=== PATIENT | male | born 1950 | race Caucasian/White ===

== ENCOUNTER 2023-09-18 12:44 | Emergency (ER) | payer BC, MEDICAID ==
[~2023-09-18] VITALS: Ht 177.8 cm; Wt 91.0 kg
[~2023-09-18 12:44] MED LIST: ASMANEX TWISTHALER IH; ASPIRIN PO; CALCITROL PO; CRESTOR PO; GABAPENTIN PO; HECORIA PO; METOPROLOL TARTRATE PO; MILK THISTLE PO; MORPHINE SULFATE PO; MYCOPHENOLATE PO; NEXIUM PO; OMEPRAZOLE PO; PREDISONE PO; SEREVENT DISKUS IH; SERTRALINE PO; TAMSULOSIN PO; TIZANIDINE PO; TRAZODONE PO; [UNRECOGNIZED DRUG - OTHER] PO; [UNRECOGNIZED DRUG - OTHER] PO
[2023-09-18 13:08] VITALS: TEMP 98.6
[2023-09-18 13:51] LABS: BASOPHILS % (AUTO) 0.5 % (0-1); EOSINOPHILS % (AUTO) 0.7 % (0-6); HEMATOCRIT 40.8 % (42.0-52.0); LYMPHOCYTES # (AUTO) 0.9 X10'3 (1.1-4.8); LYMPHOCYTES % (AUTO) 15.3 % (21-51); MEAN CORPUSCULAR HEMOGLOBIN 26.6 PG (27.0-31.0); MEAN CORPUSCULAR HGB CONC 31.8 g/dL (33.0-36.5); MEAN CORPUSCULAR VOLUME 83.9 FL (78-98); MEAN PLATELET VOLUME 6.9 FL (7.4-10.4); MONOCYTES # (AUTO) 0.5 X10'3 (0-0.9); MONOCYTES % (AUTO) 8.1 % (2-12); NEUTROPHILS # (AUTO) 4.4 X10'3 (1.8-7.7); NEUTROPHILS % (AUTO) 75.4 % (42-75); PLATELET COUNT 205 X10'3 (140-440); RED BLOOD COUNT 4.86 X10'6 (4.70-6.10); RED CELL DISTRIBUTION WIDTH 21.5 % (11.5-14.5); WHITE BLOOD COUNT 5.8 X10'3 (4.5-11.0)
[2023-09-18 14:02] LABS: ALANINE AMINOTRANSFERASE 16 U/L (12-78); ALBUMIN 2.8 G/DL (3.4-5.0); ALBUMIN/GLOBULIN RATIO 0.5 (1.1-1.5); ALKALINE PHOSPHATASE 80 IU/L (46-116); ANION GAP 7 (8-16); ASPARTATE AMINO TRANSFERASE 18 U/L (10-37); BILIRUBIN,TOTAL 0.4 MG/DL (0.1-1.0); BLOOD UREA NITROGEN 20 MG/DL (7-18); BUN/CREATININE RATIO 14.2 (10.0-20.0); CHLORIDE 104 MMOL/L (99-107); CREATININE 1.41 MG/DL (0.60-1.10); GLUCOSE 104 MG/DL (70-104); POTASSIUM 3.4 MMOL/L (3.5-5.1); SODIUM 137 MMOL/L (135-145); TOTAL CARBON DIOXIDE 25.6 MMOL/L (24-32); TOTAL PROTEIN 8.1 G/DL (6.4-8.2); eCRCL 50 ML/MIN; eGFR 50 ML/MIN
[2023-09-18 14:11] LABS: PRO BRAIN NATRIURETIC PEPTIDE 12093 PG/ML (0-125)
[2023-09-18 15:27] VITALS: BP 165/95; PULSE 85; RESP 16; O2SAT 98
== END 2023-09-18 15:29 | disposition home or self-care (01) ==
LOC: ER 12:45
DX: E11.649 Type 2 diabetes mellitus with hypoglycemia without coma (principal); E78.00 Pure hypercholesterolemia, unspecified; J45.909 Unspecified asthma, uncomplicated; Z86.73 Personal history of transient ischemic attack (TIA), and cerebral infarction without residual deficits
CPT/HCPCS: 36415; 71045; 80053; 82948; 83880; 84484; 85025; 93005; 99285

== ENCOUNTER 2024-09-18 14:41 | Emergency (ER) | payer BC, MEDICAID ==
[~2024-09-18] VITALS: Ht 177.8 cm; Wt 85.5 kg
[2024-09-18 14:49] VITALS: TEMP 98
[2024-09-18] MEDS: TETanus/Pertussis (Acell)/Diphther VAC/PF (Tdap-Adult) 0.5ml syringe IMVAC ONE (15:38)
[2024-09-18] MEDS: LIDOcaine 1% W/epiNEPHrine 1:100,000 20ml vial IJ ONE (15:39)
[2024-09-18] MEDS ORDERED: mupirocin 2% cream 15gm TP ONE (16:05)
[2024-09-18 16:10] VITALS: BP 131/86; PULSE 65; RESP 15; O2SAT 93
[2024-09-18] MEDS: mupirocin 2% ointment 22GM TP ONE (16:17)
== END 2024-09-18 16:22 | disposition home or self-care (01) ==
LOC: ER 14:42
DX: S51.012A Laceration without foreign body of left elbow, initial encounter (principal); E11.9 Type 2 diabetes mellitus without complications; E78.00 Pure hypercholesterolemia, unspecified; J45.909 Unspecified asthma, uncomplicated; Z86.73 Personal history of transient ischemic attack (TIA), and cerebral infarction without residual deficits; Z90.49 Acquired absence of other specified parts of digestive tract; Z88.6 Allergy status to analgesic agent; Z79.01 Long term (current) use of anticoagulants; Z79.899 Other long term (current) drug therapy; Z98.890 Other specified postprocedural states; Z79.82 Long term (current) use of aspirin; Z87.442 Personal history of urinary calculi; W54.0XXA Bitten by dog, initial encounter; Y93.89 Activity, other specified; Y92.89 Other specified places as the place of occurrence of the external cause; Y99.8 Other external cause status
CPT/HCPCS: 12001; 90471; 90715; 99284; A6222; A6258; A6449

== ENCOUNTER 2025-08-04 11:49 | Emergency (ER) | payer BC, MEDICAID ==
[~2025-08-04] VITALS: Ht 177.8 cm; Wt 78.7 kg
[2025-08-04 11:56] VITALS: TEMP 98.7
--- NOTE | 2025-08-04 12:17 | Physician Documentation ---
History of Present Illness ~ Chief Complaint: Hand pain Stated Complaint: HAND PAIN Time Seen by MD: 12:28 Primary Medical Doctor: GILLIAN COOK 74 year old male who presents to the emergency department reporting that he has had multiple falls lately. During one of his falls, he reports that he injured his right hand, is now having difficulty using the hand to walk with his walker. He is also concerned about a large skin cancer to the top of his head. He notes that he has been referred to a specialist, but that the surgery pertinent the skin cancer remains remote. He is seeing his primary care provider about it, and reports that it has become more painful. Date: Aug 04, 2025 Time: 13:05 Additional note by Rashi Gerardo DO: I took over the care of this patient from previous physician. I reviewed any previous notes available, obtain my own history, review of systems and physical examination was performed by myself. This is a 72-year-old gentleman who presents for evaluation right hand pain. He is right-handed. He had fallen six months ago, injured his hand. The PCP did initial x-ray which was negative. The pain continues to hurt. Tylenol use to help, no longer does. Can not take NSAIDs due to the fact that he has a kidney transplant patient on antirejection drugs. He also takes blood thinners. He is also concerned that he has a cancer and top of his head, that he was told is a result of his antirejection meds. Evidently he tried to get it evaluated, but denies that the biopsy was ever performed. He does have a PCP with the ED in healthcare. Denies any other concerns Tetanus within 5 years: Yes Medication Reconciliation Allergies: Coded Allergies: NSAIDS (Non-Steroidal Anti-Inflamma (Unverified Adverse Reaction, Unknown, kidney transplant pt, 08/04/25) Scheduled [Asmanex Twisthaler], 220 MCG IH BID, (Reported) [Aspirin ], 325 MG PO DAILY, (Reported) [Calcitrol], 0.25 MG PO DAILY, (Reported) [Centrum Cardio Vit], PO DAILY, (Reported) [Crestor], 5 MG PO DAILY, (Reported) [Doczlace], 100 MG PO DAILY, (Reported) [Gabapentin], 100 MG PO BID, (Reported) [Hecoria], 1 MG PO BID, (Reported) [Metoprolol Tartra Te], 25 MG PO BID, (Reported) [Milk Thistle], 525 MG PO DAILY, (Reported) [Morphine Sulfate], 15 MG PO BID, (Reported) [Mycophenolate], 500 MG PO BID, (Reported) [Nexium], PO DAILY, (Reported) [Omeprazole], 20 MG PO DAILY, (Reported) [Predisone], 5 MG PO DAILY, (Reported) [Serevent Diskus], 50 MCG IH BID, (Reported) [Sertraline], 50 MG PO DAILY, (Reported) [Tamsulosin], 0.4 MG PO DAILY, (Reported) [Tizanidine], 2 MG PO DAILY, (Reported) [Trazodone], 50 MG PO DAILY, (Reported) Past Medical History Past Medical History: CVA/TIA/Stroke, *ENT*, High Cholesterol, Asthma, Kidney Stones, Diabetes Past Surgical History: cholecystectomy, orthopedic surgeries, other Alcohol Use: None Drug Use: none Lives with: Spouse Lives In: Home Occupation: disabled Review of Systems ROS As stated above in the HPI, otherwise all systems are reviewed and negative. Physical Exam Vital Signs: Temperature: 98.7, Source: Oral, Heart Rate: 82, Respiratory Rate: 16, BP: 139/95, Pulse Oximetry: 96, Weight: 78.700 Oxygen Flow Rate: 0 Physical Exam GENERAL: Awake, alert, oriented, GCS 15, no apparent distress, non-toxic appearing, answers questions, follows commands appropriately. Examined in bed 13. HEENT: Atraumatic, normocephalic, pupils equal, extraocular muscles intact, sclerae anicteric, mucus membranes moist, oropharynx is clear, no stridor. NECK: supple, full active range of motion, trachea midline, no thyromegaly, no lymphadenopathy, no JVD. CARDIOVASCULAR: regular rate/rhythm, no murmurs/gallops/rubs, Pulses are 2+ in all extremities and symmetric. Capillary refill less than 2 seconds. PULMONARY: Nonlabored, good air movement ,no respiratory distress, speaking in full sentences, clear to auscultation bilaterally, no wheezing, no ronchi, no rales, no accessory muscle use. GASTROINTESTINAL: Soft, non-tender, non-distended, normal active bowel sounds, no organomegaly, no pulsatile masses, no CVA tenderness. NEUROLOGIC: Lucid with normal mental status. Normal facial symmetry. Moves all extremities symmetrically and with purpose. No truncal ataxia. Speech is fluid without evidence of dysarthria or aphasia, no focal deficits appreciated. MUSCULOSKELETAL: There is full range of motion of all extremities. There is no joint pain or joint swelling or joint erythema. There is no muscle pain or tenderness or swelling. EXTREMITIES: warm, well-perfused, no cyanosis, no clubbing, no edema, no acute deformities. Skin: warm, dry, no rashes or lesions, no jaundice, no petechiae orpurpura. No ecchymosis. PSYCHIATRIC: Normal affect, normal insight, normal concentration. Focused exam: There is a raised fungating mass on his scalp, no active bleeding with a some necrosis. No surrounding erythema calor. Progress Results/Orders Results/Orders Vital Signs 08/04/25 08/04/25 11:56 12:27 Temp 98.7 Pulse 82 75 Resp 16 16 B/P (MAP) 139/95 129/94 (106) Pulse Ox 96 97 O2 Flow Rate 0 0 Medical Decision Making Additional information obtaine: family Findings Facility Status: ED Holds, RME process The plan was discussed with the patient, who demonstrates clear understanding of the plan and is in agreement with the plan unless otherwise noted in the chart. All questions have been answered, all concerns were addressed unless otherwise documented. I was available throughout their ED stay for frequent reassessment and questions. Differential Diagnoses (considered and possible or likely): [Ground level fall, chronic wrist pain, less likely fracture, dislocation, arthritis has also been considered] ??Differential Diagnoses (considered and unlikely, not requiring evaluation currently): [No evidence of neurovascular injury] MDM Data Please see [facility] for the following: Independent Historians and external Records Review. Historian: [Patient] Independent Historians: ?[Record review] Medication Management: [Reviewed medication list] Social History and determinants: [Reviewed] Please see the body of the note for the following: Any independent interpretations of ECG, imaging studies. All vitals signs/haemodynamics, ordered tests were independently reviewed and interpreted by myself. Nursing triage complaint and vitals reviewed, additional nursing notes were reviewed as available and I agree unless otherwise noted or documented in contradiction in the chart Vital Signs: Independently reviewed Labs: Independently interpreted Imaging: Independently interpreted Old Medical Records: Independently reviewed, see [facility] for relevant summary and i nformation Additionally notably showing: [Hemodynamically stable. X-ray shows no acute fracture. Arthritis noted. All fractures noted.] Tests considered but not ordered include: [Hematologic workup has been considered but does not appear to be necessary given mechanical nature of the injury.] Social Determinants of Health Impact: Patient was evaluated in [facility] [place] to healthcare due to below par ratio of patient to medical providers. [] Comorbid Conditions Impacting Present Evaluation and Care/Treatment: [Cancer, immunocompromise patient] Management Discussions with other Healthcare Providers: [None] Treatment and Disposition Medication Management (Given or considered): []. See EMR for details Consideration for Hospitalization/Escalation/Deescalation of Care: Admission for observation has been considered, [however the patient is able to tolerate p.o., their symptoms are controlled, they are able to rely on oral medications, and their chief complaint/diagnosis can be managed on outpatient basis.] ?ED Course:?[No clinical deterioration. Discussed with the patient that he needs to follow-up with the PCP to get the cancer biopsied.] ?Shared decision making:? Patient is hemodynamically stable for discharge home with follow with their primary care provider. [ ] Specific and cautious return precautions provided and discussed with full understanding. Any incidental findings were also discussed and follow up recommendations given. [] All q uestions answered. Patient/family were able to verbalize back return precautions. Patient/family agree to plan. Copies of imaging and laboratory studies were provided. Code status:?FULL Please see the full Electronic Medical Record for full details of nursing documentation, medications list, other records of complete past medical history and conditions, vital signs, laboratory studies, and any radiologic study interpretations by radiologists. Portions of this note were completed using [employer] dictation software and as a result there may exist minor errors in spelling. I have reviewed elements of past family and social history and agree as included in note. General Diff Dx:Considerations: Include: Other (See body of main note for diffe rential diagnosis) Shoulder Diff Dx:Consideration: Unlikely: Other Elbow Diff Dx:Considerations: Unlikely: Other Wrist Diff Dx:Considerations: Unlikely: Other Hand Diff Dx:Considerations: Unlikely: Other Finger Diff Dx:Considerations: Unlikely: Other Additional Comment Most Likely Diagnoses: Right wrist or hand fracture: The acute right hand pain following a fall with difficulty using the walker strongly suggests a fracture, most commonly of the distal radius (Colles' fracture) or scaphoid. Wrist fractures are common in older adults after falls, and patients experience persistent pain and functional limitation that can significantly impair activities of daily living and assistive device use. The inability to bear weight on the walker due to hand pain is a classic presentation. [1] Orthostatic hypotension causing recurrent falls: The recurrent falls in a 74-year-old suggest orthostatic hypotension, which has a prevalence of approximately 20% in older adults and is associated with a significant increase in falls. Dysautonomia can present with progressive orthostatic hypotension and other autonomic symptoms. The combination of recurrent falls and difficulty with mobility aids indicates significant balance impairment requiring evaluation. [2] Medication-related falls and dizziness: Polypharmacy is a common contributor to falls in older adults, particularly with psychoactive, anticholinergic, cardiovascular, and analgesic medications. Loop diuretics, ?-blockers, ?- blockers, benzodiazepines, anticholinergics, and gabapentinoids are all associated with increased fall risk through sedation, orthostatic hypotension, or other mechanisms. [3] Peripheral neuropathy with gait instability: Patients with more severe neuropathy may have an unsteady, wide-based gait due to large fiber proprioceptive sensory loss (sensory ataxia). Motor examination may show intrinsic foot atrophy and weakness. The presence of a Romberg sign indicates impaired proprioception contributing to falls. [4] Parkinson disease or parkinsonism: Recurrent falls can be an early manifestation of Parkinson disease or atypical parkinsonism. A wide-based gait accompanied by impaired tandem gait signals the possible presence of atypical parkinsonism. These conditions share faster disease progression and a faster appearance of debilitating complications such as falls. [5] Knee or hip osteoarthritis affecting balance: Elderly individuals with knee osteoarthritis demonstrate higher absolute angular velocities across most body segments during static and dynamic tasks, indicating reduced postural stability and increased fall risk. Degenerative joint disease can significantly impair gait and balance. [6] Departure Disposition: 01 HOME / SELF CARE / HOMELESS Impression: Primary Impression: Chronic wrist pain Additional Impressions: Arthritis, wrist Scalp mass Anticoagulated Immunocompromised Condition: Improved Discharge Instructions: Arthritis, Nonspecific Referrals: NO PRIMARY CARE PROVIDER (PCP) Prescriptions ONDANSETRON ODT 4mg tablet (ONDANSETRON ODT) 4 Mg Tab.rapdis 1 TAB PO Q6H PRN PRN for nausea/vomiting for 4 Days, #16 TAB 0 Refills Prov: RASHI GERARDO DO 08/04/25 Naloxone HCl (Narcan) 4 Mg/Actuation [place] 1 SPRAYS BOTHNARES ONCE for 14 Days, #1 EA 0 Refills Prov: RASHI GERARDO DO 08/04/25 Hydrocodone Bit/Acetaminophen 5/325 MG (Trinity 5/325 MG) 5 Mg/325 Mg Tablet 1 TAB PO Q6H PRN for pain for 7 Days, #28 TAB Prov: RASHI GERARDO DO 08/04/25 Education Educated: Patient Educated regarding: diagnosis, treatment, prognosis, need for follow up Signature Scribe Signature: x Attestation: The note accurately reflects work and decisions made by me.Lulu Veloz - KARLA 08/04/25 12:14 This note accurately reflects clinical decisions, work performed by myself, DO BOB Schulz HEIDI L NP Aug 04, 2025 12:17 RASHI GERARDO DO Aug 04, 2025 13:16
--- NOTE | 2025-08-04 12:43 | RADIOLOGY REPORT ---
EXAM: DI HAND, COMPLETE (3VW MIN) CLINICAL INDICATION: trauma, pain RIGHT HAND TECHNIQUE: DI HAND, COMPLETE (3VW MIN) Comparison: None FINDINGS/IMPRESSION: There is no evidence of acute fracture or dislocation. Chronic deformity 5th metacarpal. The alignment is anatomical. There is no radiopaque foreign body.
[2025-08-04] MEDS ORDERED: NALO4SPR BOTHNARES (13:34)
[2025-08-04] MEDS ORDERED: HYDR-3965 PO (13:34)
[2025-08-04] MEDS ORDERED: ONDA-243 PO (13:34)
[2025-08-04 14:31] VITALS: BP 142/94; PULSE 66; RESP 18; O2SAT 95
== END 2025-08-04 14:35 | disposition home or self-care (01) ==
LOC: ER 11:50
DX: M13.831 Other specified arthritis, right wrist (principal); G89.29 Other chronic pain; M25.531 Pain in right wrist; R22.0 Localized swelling, mass and lump, head; D84.9 Immunodeficiency, unspecified; E11.42 Type 2 diabetes mellitus with diabetic polyneuropathy; E78.00 Pure hypercholesterolemia, unspecified; J45.909 Unspecified asthma, uncomplicated; Z86.73 Personal history of transient ischemic attack (TIA), and cerebral infarction without residual deficits; Z87.442 Personal history of urinary calculi; Z88.6 Allergy status to analgesic agent; Z90.49 Acquired absence of other specified parts of digestive tract; Z79.82 Long term (current) use of aspirin; Z79.899 Other long term (current) drug therapy; Z98.890 Other specified postprocedural states
CPT/HCPCS: 73130; 99283